=== PATIENT | female | born 1970 | race Caucasian/White ===

== ENCOUNTER 2018-03-08 12:11 | Emergency (ER) | payer OTHER ==
[~2018-03-08] VITALS: Ht 165.1 cm; Wt 95.8 kg
[2018-03-08 12:28] VITALS: Ht 165.1 cm; Wt 95.8 kg
[2018-03-08 15:06] VITALS: BP 118/76
== END 2018-03-08 15:06 | disposition home or self-care (01) ==
LOC: ED 12:11
DX: M54.6 Pain in thoracic spine (principal); J45.909 Unspecified asthma, uncomplicated; Z88.5 Allergy status to narcotic agent
CPT/HCPCS: 72072; J1885

== ENCOUNTER 2019-05-28 08:57 | Inpatient (IN) | payer OTHER ==
[~2019-05-28] VITALS: Ht 172.7 cm; Wt 84.4 kg
[2019-05-28 08:59] VITALS: Ht 172.7 cm; Wt 84.4 kg
--- NOTE | 2019-05-28 09:18 | NUR ---
PT HERE FOR PRESSURE LIKE CHEST PAIN STARTED THIS AM 0800 NO PROVOKED AND NONRADIATING. PT ARRIVES ALERT AND ORIENTED WITH VSS AND NO DISTRESS NOTED. PT WAS GIVEN 1 NITRO EN ROUTE BY EMS TO BRING PAIN LEVEL FROM A 10 TO 4. CURRENTLY STILL 4/10. EKG PERFORMED BY EMS AND UPON ARRIVAL WITH NSR 61 WITHOUT ECTOPY. PT ALSO CLAIMS PAIN IS WORSE WITH INSPIRATION. PT GIVEN 325 ASP AND 1 TOTAL NITRO EN ROUTE. CONNECTED TO TELECOMMUNICATIONS TECHNICIAN WITH NO DISTRESS NOTED. AWAITING MD GIL
[2019-05-28 09:28] LABS: BASOPHIL % 0.5 % (0-2); PLATELET COUNT 191 x10^3mcL (130-400); RED CELL DISTRIBUTION WIDTH 13.4 % (11.5-14.5)
[2019-05-28 10:20] LABS: ALBUMIN 3.6 g/dL (3.4-5.0); ALKALINE PHOSPHATASE 63 U/L (46-116); ALT/SGPT 17 U/L (14-59); AST/SGOT 6 U/L (15-37); BILIRUBIN TOTAL 0.31 mg/dL (0.20-1.00); CALCIUM 9.5 mg/dL (8.5-10.1); CHLORIDE SERUM 106 mmol/L (98-107); CREATININE SERUM 0.8 mg/dL (0.6-1.0); GFR1 > 60 mL/min; GLUCOSE SERUM 104 mg/dL (74-106); POTASSIUM SERUM 4.7 mmol/L (3.5-5.1); SODIUM SERUM 140 mmol/L (136-145); TOTAL PROTEIN, SERUM 7.2 g/dL (6.4-8.2)
[2019-05-28 10:29] LABS: CARBON DIOXIDE 23.6 mmol/L (21-32)
--- NOTE | 2019-05-28 10:41 | NUR ---
DR MINER SAW PT
[2019-05-28 11:09] LABS: microscopic required? NO
[2019-05-28 11:23] LABS: AMYLASE 52 U/L (25-115); CHOLESTEROL 197 mg/dL (<200); HDL CHOLESTEROL 60 mg/dL (40-60); LIPASE 144 IU/L (73-393)
[2019-05-28] MEDS ORDERED: METOPROLOL SUCC25 M2 PO (11:50)
--- NOTE | 2019-05-28 11:50 | NUR ---
DR MINER AT BEDSIDE FOR REEVAL
[2019-05-28 11:58] LABS: UA SPECIFIC GRAVITY 1.025 (1.005-1.035); urine erythrocyte NEGATIVE (NEGATIVE)
[2019-05-28 12:08] LABS: AMPHETAMINE QUAL UR NONE DETECTED (See below)
--- NOTE | 2019-05-28 13:30 | NUR ---
REPORT GIVEN TO DANNA FREED RN
[2019-05-28 13:58] VITALS: BP 103/68
--- NOTE | 2019-05-28 14:12 | NUR ---
RECEIVED PT FROM ER, PT ADMIT FOR CHEST PAIN, PTI S A/O X4, VERBAL RESPONSIVE, LUNG SOUND CLEAR BIALTERAL, NO COUGH, NO SOB, PT IS ON TELE 14, SB, C/O CHEST PAIN 3/10, AT THIS MOMENT. NO RAIDATION. BOWEL SOUND PRESENT ALL 4 QUADRANTS, NO DISTENTION, NO TENDER. PEDAL PULSE PRESENT BOTH FEET, NO EDEMA, IV AT LEFT HAND, NO LEAKING, NO INFITLRAITON. ALL ADLS ASSIST, ALL NEED MET, CALL LIGHT INREACH, WILL CONTINUE TO MONITOR.
--- NOTE | 2019-05-28 16:48 | NUR ---
PT C/O OF HEADACHE 05/23. GAVE TYLENOL ORDERED. WILL CONTINUE TO MONITOR.
--- NOTE | 2019-05-28 17:29 | NUR ---
PT ASLEEP BUT AROUSABLE. WILL CONTINUE TO MONITOR.
--- NOTE | 2019-05-28 17:56 | NUR ---
PT C/O OF NAUSEA. GAVE ZOFRAN ORDERED. WILL CONTINUE TO MONITOR.
[2019-05-28 18:15] VITALS: BP 103/66
--- NOTE | 2019-05-28 18:19 | NUR ---
PT LYING IN BED RESTING. NO C/O OF CHEST PAIN O PRESSURE. DENIES ANY NAUSEA. IV INTACT AND PATENT. CALL LIGHT WITHIN REACH. WILL BE ENDORSED.
--- NOTE | 2019-05-28 19:25 | NUR ---
RECIEVED PATIENT AT START OF SHIFT A/O X4. ON TELE 14 SINUS KARNE 56. DENEIS CHEST PAIN AT THIS TIME. NO SOB NOTED ON RA. LUNGS CTAB. NO EDEMA NOTED. PULSES MODERATE. DENIES NAUSEA.PATIENT IS AMBULATORY WITHOUT ASSIST, SKIN WARM DRY AND INTACT. IV TO LH IS INFUSING WITHOUT ETYTHEMA OR INFILTRATION. BED LOCKED AND IN LOWETS POSITION. CALL LIGHT AND BEDSIDE TABLE WITHIN REACH.
[2019-05-28 21:01] VITALS: BP 96/53
--- NOTE | 2019-05-28 21:54 | NUR ---
METROPOLOL DOSE HELD DUE TO BP OF 96/53, HR 57. DR. JANSEN PAGED TO NOTIFY.
--- NOTE | 2019-05-28 22:55 | NUR ---
IV FLUIDS REPLACED AT THIS TIME. PATIENT'S EYES ARE CLOSED. BREATHS EVEN AND REGULAR. CALL LIGHT AND BEDSIDE TABLE WITHIN REACH.
--- NOTE | 2019-05-29 04:10 | NUR ---
PATIENT'S EYES ARE CLOSED, BREATHS EVEN. NO SIGNS OF DISTRESS. IN A DEEP SLEEP WITH BRADYCARDIA 43
[2019-05-29 05:37] VITALS: BP 100/49
--- NOTE | 2019-05-29 06:28 | NUR ---
PATIENT IS AWAKE. DENIES CHEST PAIN. IV INFUSING TO LH WITHOUT ERYTHEMA OR INFILTRATION. BED LOCKED AND IN LOWEST POSIITON. CALL LIGHT WITHIN REACH. SINUS KAREN 48. WILL ENDORSE CARE TO DAYSHIFT NURSE.
[2019-05-29 06:35] LABS: BASOPHIL % 0.4 % (0-2); PLATELET COUNT 168 x10^3mcL (130-400); RED CELL DISTRIBUTION WIDTH 13.6 % (11.5-14.5)
[2019-05-29 06:43] LABS: CALCIUM 8.6 mg/dL (8.5-10.1); CARBON DIOXIDE 28.7 mmol/L (21-32); CHLORIDE SERUM 108 mmol/L (98-107); CREATININE SERUM 0.7 mg/dL (0.6-1.0); GFR1 > 60 mL/min; GLUCOSE SERUM 85 mg/dL (74-106); PHOSPHOROUS 3.2 mg/dL (2.5-4.9); POTASSIUM SERUM 4.3 mmol/L (3.5-5.1); SODIUM SERUM 143 mmol/L (136-145)
--- NOTE | 2019-05-29 08:35 | NUR ---
ECHOCARDIOGRAM PENDING-HAD ECHO LAST MONTH AT DOCTOR'S OFFICE
--- NOTE | 2019-05-29 08:40 | NUR ---
RECEIVED PATIENT FROM ANTHONY THORNTON NURSE. PATIENT ALERT/ORIENTED X4; TELE#14; SB; HR = 57; DENIED CHEST PAIN NOW. NO RESP DISTRESS ON RA. TOLERATED CARDIAC DIET. AMBULATORY. IV TO L HAND INTACT. CALL LIGHT IN REACH.
[2019-05-29 09:56] VITALS: BP 104/69
[2019-05-29 11:58] VITALS: BP 95/56
[2019-05-29 14:23] LABS: BASOPHIL % 0.3 % (0-2); PLATELET COUNT 179 x10^3mcL (130-400); RED CELL DISTRIBUTION WIDTH 13.1 % (11.5-14.5)
--- NOTE | 2019-05-29 16:20 | NUR ---
DR. LEZAMA CAME TO SEE PATIENT. ORDER TO D/C HOME TODAY.
--- NOTE | 2019-05-29 17:01 | NUR ---
DENIED CHEST PAIN. TROPNIN NEGATIVE X3. D/C TO HOME PER ORDER. INSTRUCTION GIVEN. IV D/C'D. CONDITION STABLE.
--- NOTE | 2019-05-30 08:18 | NUR ---
ECHOCARDIOGRAM NOT DONE-DISCHARGED
== END 2019-05-29 17:05 | disposition home or self-care (01) | DRG 203 ==
LOC: ED 08:57 → DU 12:10
PROVIDERS: Emergency Medicine; ADMIT Internal Medicine
DX: M94.0 Chondrocostal junction syndrome [Tietze] (principal); F17.210 Nicotine dependence, cigarettes, uncomplicated; I10 Essential (primary) hypertension; J45.909 Unspecified asthma, uncomplicated; Z68.28 Body mass index [BMI] 28.0-28.9, adult; Z88.6 Allergy status to analgesic agent; Z90.49 Acquired absence of other specified parts of digestive tract; Z98.51 Tubal ligation status; Z82.49 Family history of ischemic heart disease and other diseases of the circulatory system
CPT/HCPCS: 83880; 99406; G0378; J2405; J7030; Q0092

== ENCOUNTER 2019-07-10 08:14 | Inpatient (IN) | payer OTHER ==
[~2019-07-10] VITALS: Ht 172.7 cm; Wt 80.0 kg
[~2019-07-10 08:14] MED LIST: METOPROLOL SUCC25 M2 PO
[2019-07-10 08:18] VITALS: Ht 172.7 cm; Wt 80.0 kg
--- NOTE | 2019-07-10 08:36 | NUR ---
PT COMES TO ER WITH C/O ANTERIOR CHEST WALL PAIN RADIATING TO LEFT ARM PRESURE IN SENSATION 5/10 SINCE THIS AM WHILE DOING NOTHING. DENIES ANY SOB AT THIS TIME, BUT HAD MILD SOB WITH CHEST PAIN EARLIER THIS AM. RESP EVEN AND UNALBORED, ON RA @98%. PT WAS BIBA FROM HOME, NITRO GIVEN EN ROUTE WITH PAIN RELIEF FROM 10 TO 4 AT THIS TIME. IV SL INSERTED BY EMS. PT CURRENTLY NSR ON MONITOR. SKIN W/D/I. DENIES ANY N/V/D. LS-CLR DEBORAH, RUPA FOR MSE, EKG IN PROCESS.
[2019-07-10 09:15] LABS: BASOPHIL % 0.4 % (0-2); PLATELET COUNT 140 x10^3mcL (130-400); RED CELL DISTRIBUTION WIDTH 12.8 % (11.5-14.5)
[2019-07-10 09:23] LABS: CALCIUM 8.3 mg/dL (8.5-10.1); CARBON DIOXIDE 25.5 mmol/L (21-32); CHLORIDE SERUM 104 mmol/L (98-107); CREATININE SERUM 0.8 mg/dL (0.6-1.0); GFR1 > 60 mL/min; GLUCOSE SERUM 101 mg/dL (74-106); POTASSIUM SERUM 3.9 mmol/L (3.5-5.1); SODIUM SERUM 139 mmol/L (136-145)
[2019-07-10 09:28] LABS: ALBUMIN 3.4 g/dL (3.4-5.0); ALKALINE PHOSPHATASE 56 U/L (46-116); ALT/SGPT 11 U/L (14-59); AST/SGOT 3 U/L (15-37); BILIRUBIN TOTAL 0.32 mg/dL (0.20-1.00); TOTAL PROTEIN, SERUM 7.1 g/dL (6.4-8.2)
--- NOTE | 2019-07-10 09:34 | NUR ---
NO ACUTE CHNAGES IN CONDITION, PT IN NAD. DENIES ANY CP OR SOB AT THIS TIME. SINUS KAREN AT 56 BPM.
[2019-07-10] MEDS ORDERED: ASPIR 8181 MG (10:39)
[2019-07-10] MEDS ORDERED: TOPROL XL25 MG (10:39)
--- NOTE | 2019-07-10 10:58 | NUR ---
PT UP TO BATHROOM, STEADY GAIT, DENIES ANY SOB. PT HYPOTENSIVE AT 89/69, SINUSBRADY AT 48. DR OWEN INFORMED.
--- NOTE | 2019-07-10 11:03 | NUR ---
DR OWEN INFORMED OF URINE DIP.
[2019-07-10 11:14] LABS: CHOLESTEROL/HDL RATIO 3.8; PHOSPHOROUS 2.6 mg/dL (2.5-4.9)
[2019-07-10 11:47] LABS: UA SPECIFIC GRAVITY >=1.030 (1.005-1.035); microscopic required? YES; urine erythrocyte 2+ (NEGATIVE)
--- NOTE | 2019-07-10 13:01 | NUR ---
REPORT GIVEN TO HARPER VÁSQUEZ, UPDATED ON PT'S STATUS, ALBS AND VITALS. PT SB AND SLIGHTLY HYPOTENSIVE, VERBALIZED UNDERSTANDING. PT DENIES ANY ACUTE CP AT THIS TIME. ALL BELONGINGS WITH PT.
[2019-07-10 13:24] VITALS: BP 105/62
--- NOTE | 2019-07-10 13:33 | NUR ---
RECEIVED PT FROM ER, PT ADMIT FOR CHEST PAIN, PT IS A/O X4, VERBAL REPSONSIVE, ABLE TO TELL WHAT SHE NEEDS. LUNG SOUND CLEAR BILATERAL, NO COUGH,NO SOB, PT IS ON TELE 7, SB, AT THIS MOMENT, PT HR BETWEEN 55-62 AT THIS MOMENT, C/O CHEST PAIN 5/10, R/T LEFT ARM, BOWEL SOUND PRESENT ALL 4 QUADRANTS, NO DISTENTION, NO TENDER. PEDAL PULSE PRESENT BOTH FEET, NO EDEMA, IV AT LEFT HAND, NO LEAKING, NO INFILTRAIOTN. ALL ADLS ASSIST, ALL NEED MET, CALL LIGHT IN REACH, WI LL CONTINUE TO MONITOR.
--- NOTE | 2019-07-10 13:51 | NUR ---
DR JANSEN AWARE THAT HER UA IS POSITIVE FOR NITRITES.
[2019-07-10 14:09] LABS: AMPHETAMINE QUAL UR NONE DETECTED (See below)
--- NOTE | 2019-07-10 14:22 | NUR ---
ECHO PENDING PT. HAD STUDY DONE IN APRIL AT [employer] OFFICE
[2019-07-10 17:40] VITALS: BP 102/51
--- NOTE | 2019-07-10 17:53 | NUR ---
AAO TIMES 4. TELE # 7 SB. NO C/O PAIN. NO SOB. IV SITE CDI, PATENT. COOPERATIVE AND PLEASANT. IV SITE CDI. BRP SELF, WITHOUT DIFFICULTY. NO C/O PAIN.
--- NOTE | 2019-07-10 19:34 | NUR ---
SHIFT REASSESSMENT DONE.PATRIENT ALERT AND ORIENTED.WATCHING TV.IN GOOD SPIRIT.BREATHING EASY.AMBULATORY.HEPLOCK INTACT.TELE 7 SB.STRESS TEST TOMORROW 11 AM.CALL LIGHT IN REACH.
--- NOTE | 2019-07-10 20:40 | NUR ---
NO PM MEDS AT THIS TIME,PATIENT RESTING,NO COMPLAINT.
[2019-07-10 21:07] VITALS: BP 93/60
--- NOTE | 2019-07-11 01:09 | NUR ---
CHECKED AT INTERVALS,NO RESP DISTRESS.STRESS TEST AT 11 AM SCHEDULE.PATIENT AWARE.NPO SINCE MIDNIGHT.
--- NOTE | 2019-07-11 05:15 | NUR ---
I AND O MEASURED.BRP.VOIDING.NO INCIDENT.STRESS TEST AT 11 AM,NPO.WILL ENDORSE TO NEXT SHIFT.
[2019-07-11 05:41] VITALS: BP 100/65
--- NOTE | 2019-07-11 07:05 | NUR ---
RECEIVED PT FROM ESCALATOR [employer] MECHANIC NURSE. PT RESTING IN BED, AOX4, RESP E/U ON RA. DENIES CHEST PAIN OR SOB AT THIS TIME, NO ACUTE DISTRESS NOTED. ON TELE 7 SHOWING SINUS KAREN, HR: 57. SALINE LOCKED TO L HAND W/ NO ERYTHEMA OR EDEMA. BED IN LOWEST POSITION AND CALL LIGHT WITHIN REACH. WILL CONTINUE TO MONITOR.
[2019-07-11 07:29] LABS: BASOPHIL % 0.5 % (0-2); PLATELET COUNT 138 x10^3mcL (130-400); RED CELL DISTRIBUTION WIDTH 13.4 % (11.5-14.5)
[2019-07-11 08:00] VITALS: BP 97/65
[2019-07-11 08:07] LABS: CALCIUM 8.4 mg/dL (8.5-10.1); CARBON DIOXIDE 23.5 mmol/L (21-32); CHLORIDE SERUM 104 mmol/L (98-107); CREATININE SERUM 0.6 mg/dL (0.6-1.0); GFR1 > 60 mL/min; GLUCOSE SERUM 96 mg/dL (74-106); PHOSPHOROUS 3.3 mg/dL (2.5-4.9); POTASSIUM SERUM 3.9 mmol/L (3.5-5.1); SODIUM SERUM 139 mmol/L (136-145)
--- NOTE | 2019-07-11 10:38 | NUR ---
PT BROUGHT DOWN FOR STRESS TEST AT THIS TIME.
--- NOTE | 2019-07-11 11:42 | NUR ---
LEXISCAN STRESS DONE
[2019-07-11 12:50] VITALS: BP 101/66
[2019-07-11 16:24] VITALS: BP 96/62
--- NOTE | 2019-07-11 17:55 | NUR ---
PT RESTING IN BED, AOX4, RESP E/U ON RA. REPORTED MILD CHEST PAIN BUT TOLERABLE, NO REQUEST FOR PAIN MEDS AT THIS TIME. DENIES DIZZINESS OR SOB. IV TO L HAND W/ NO SIGNS OF INFILTRATION, IVF INFUSING WELL. BED IN LOWEST POSITION AND CALL LIGHT WITHIN REACH. WILL ENDORSE TO ONCOMING NURSE.
[2019-07-11 19:22] VITALS: BP 99/50
--- NOTE | 2019-07-11 19:39 | NUR ---
AWAKE AND ALERT, ORIENTED TO NAME, PLACE, TIME AND SITUATION. SPEECH CLEAR AND APPROPRIATE. HOB ELEVATED 30 DEG. BREATHING EVEN AND UNLABORED ON ROOM AIR. LUNG SOUNDS CLEAR. SINUS RHYTHM ON TELE, HR 67/MIN. STATED HAVING LITTLE PAIN TO CHEST, DESCRIBED "ACID LIKE" RADIATING TO LEFT ARM. TROPONIN NEGATIVE X 3. IVF OF NS INFUSING AT 70ML/HR. CALL LIGHT WITHIN EASY REACH.
--- NOTE | 2019-07-11 21:28 | NUR ---
AWAKE AND ALERT, WATCHING TV. STATED FELT SOME DISCOMFORT TO IV SITE TO LEFT WRIST. IV FLUSHED WELL, IVF INFUSING WELL, GOOD BLOOD RETURN, NO ERYTHEMA OR SWELLING. OFFERED TO CHANGE IV SITE, PT DID NOT WANT IV REMOVED AND NEW IV INSERTED.
--- NOTE | 2019-07-11 23:34 | NUR ---
HEART RATE WENT DOWN TO LOW 40'S/MIN. WOKE PT UP, PT ASYMPTOMATIC. HR WENT UP TO 60/MIN.
[2019-07-12] VITALS (8 sets, daily range): BP systolic 89–139; BP diastolic 48–60
--- NOTE | 2019-07-12 02:04 | NUR ---
AMBULATED TO RESTROOM, GAIT STEADY
[2019-07-12 06:46] LABS: BASOPHIL % 0.5 % (0-2); PLATELET COUNT 137 x10^3mcL (130-400); RED CELL DISTRIBUTION WIDTH 13.2 % (11.5-14.5)
[2019-07-12 06:53] LABS: CARBON DIOXIDE 27.6 mmol/L (21-32); CHLORIDE SERUM 106 mmol/L (98-107); CREATININE SERUM 0.7 mg/dL (0.6-1.0); GFR1 > 60 mL/min; GLUCOSE SERUM 85 mg/dL (74-106); PHOSPHOROUS 3.6 mg/dL (2.5-4.9); POTASSIUM SERUM 4.2 mmol/L (3.5-5.1); SODIUM SERUM 143 mmol/L (136-145)
--- NOTE | 2019-07-12 07:12 | NUR ---
EYES CLOSED, BREATHING EVEN AND UNLABORED ON ROOM AIR. IN NO ACUTE DISTRESS. ENDORSED TO NURSE SHELIA
--- NOTE | 2019-07-12 07:30 | NUR ---
PT ENDORSE TO ME THIS MORNING, LAYING IN BED RESTING, AA/O X4, BREATHING EVEN AND UNLABORED ON RA, NO ACUTE RESP DISTRESS OR SOB NOTED. TELE 7 SB NOTED, HR 49 NOTED, DENIES ANY CP OR PRESSUE. TRACE OF EDEMA NOTED BLE. BOWEL SOUNDS ACTIVE IN ALL FOUR QUADS NOTED. VOIDS FREELY. AMB. IV TO THE LH INTACT AND PATENT, NO REDNESS OR SWELLING NOTED/ INFUSING AT 70ML/HR. CALL LIGHT IN REACH. BED IN LOW POSITION. WILL CONTINUE TO MONITOR.
--- NOTE | 2019-07-12 08:21 | NUR ---
PT C/O OF [place], MEDICATED PER EMAR. WILL CONTINUE TO MONITOR.
--- NOTE | 2019-07-12 13:25 | NUR ---
PT TOLERATED 100% OF LUNCH, DENIES ANY CP OR PRESSURE. WILL CONTINUE TO MONITOR.
--- NOTE | 2019-07-12 18:55 | NUR ---
DR. PUENTE IN PT'S ROOM REGARDING POSSIBLE DISCHARGE. PT STATED SHE WILL EITHER BE DISCHARGED OR GO AMA BECAUSE SHE NEEDS TO LEAVE BY 9PM TONIGHT. DR. PUENTE EXPLAINED HE IS REVIEWING HER RECORDS AND WILL COME BACK IN 10-15 MINUTES. PT IS MED SURG PT, DENIES HAVING CHEST PAIN OR CHEST DISCOMFORT. AWAKE AND ALERT, AMBULATORY.
--- NOTE | 2019-07-12 19:00 | NUR ---
NO ACUTE CHANGES AT THIS TIME. NO ACUTE RESP DISTRESS OR SOB NOTED. PER PT DR. LEZAMA CLEARED HER AND WANTS TO GO HOME/ MADE AWARE. PENDING DISCHARGE.WILL ENDORSE TO INCOMING RN.
--- NOTE | 2019-07-12 19:27 | NUR ---
DISCHARGED ORDERS NOTED. REMOVED IV TO LEFT HAND, INTACT.
--- NOTE | 2019-07-12 19:30 | NUR ---
KWAME CLAIRE WROTE PRESCRIPTION FOR LEVAQUIN 500MG PO ONCE DAILY X 3 DAYS AND ASPIRIN 81 MG PO DAILY FOR 15 DAYS.
--- NOTE | 2019-07-12 19:39 | NUR ---
DISCHARGE INSTRUCTIONS PROVIDED. DISCUSSED PURPOSE, POSSIBLE SIDE EFFECTS AND HOW TO TAKE PRESCRIBE MEDICATIONS. ALSO EMPHASIZED NEED TO KEEP APPOINTMENT WITH PRIMARY PHYSICIAN AND TO CALL HIS OFFICE BEFORE APPOINTMENT TO CONFIRM.
--- NOTE | 2019-07-12 20:10 | NUR ---
BROUGHT DOWN TO LOBBY BY NELA PENDLETON BY WHEELCHAIR. PT AWAKE AND ALERT. IN NO ACUTE DISTRESS. SENT HOME WITH BELONGINGS. HER NEIGHBOR CAME TO PICK HER UP WITH PRIVATE AUTO.
== END 2019-07-12 20:09 | disposition home or self-care (01) | DRG 203 ==
LOC: ED 08:14 → DU 10:24 → MU 07-12 17:41
PROVIDERS: Emergency Medicine; ADMIT Internal Medicine
DX: M94.0 Chondrocostal junction syndrome [Tietze] (principal); F17.210 Nicotine dependence, cigarettes, uncomplicated; N39.0 Urinary tract infection, site not specified; I34.0 Nonrheumatic mitral (valve) insufficiency; J45.909 Unspecified asthma, uncomplicated; I10 Essential (primary) hypertension; Z79.82 Long term (current) use of aspirin; Z68.28 Body mass index [BMI] 28.0-28.9, adult; Z88.5 Allergy status to narcotic agent; Z88.2 Allergy status to sulfonamides; Z88.8 Allergy status to other drugs, medicaments and biological substances; Z90.49 Acquired absence of other specified parts of digestive tract; Z98.51 Tubal ligation status; Z82.49 Family history of ischemic heart disease and other diseases of the circulatory system; Z79.899 Other long term (current) drug therapy
CPT/HCPCS: 83880; A9500; G0378; J0696; J2785; J7030; J7040; Q0092